=== PATIENT | female | born 1975 | race Caucasian/White ===

== ENCOUNTER 2017-06-13 10:26 | Inpatient (IN) | payer BC ==
[~2017-06-13] VITALS: Ht 162.6 cm; Wt 113.4 kg
[~2017-06-13 10:26] MED LIST: HYDR-3454 PO; HYDR-757 PO
--- OUTSIDE RECORDS SUMMARY | 2017-06-13 10:56 | XMS REPORT | Continuity of Care Document ---
Author Author [facility] Organization [facility] Address Unknown Phone Unavailable Allergies Active Description Code Type Severity Reaction Onset Reported/Identified Relationship to Patient Clinical Status Yes No Known Drug Allergies [id number] Drug Allergy Unknown N/A 09/23/2015 Medications There is no data. Problems Date Dx Coded Attending Type Code Diagnosis Diagnosed By 09/18/2015 YU KELLY APRN Ot K80.50 CALCULUS OF BILE DUCT W/O CHOLANGITIS OR 09/18/2015 YU KELLY APRN Ot R59.0 LOCALIZED ENLARGED LYMPH NODES 09/18/2015 YU KELLY ESOL INSTRUCTOR Ot R93.5 ABN FINDINGS ON DX IMAGING OF ABD REGION 09/19/2015 YU KELLY APRN Ot K80.50 CALCULUS OF BILE DUCT W/O CHOLANGITIS OR 09/19/2015 YU KELLY APRN Ot R59.0 LOCALIZED ENLARGED LYMPH NODES 09/19/2015 YU KELLY ESOL INSTRUCTOR Ot R93.5 ABN FINDINGS ON DX IMAGING OF ABD REGION 09/22/2015 CANDACE CORONA DO Ot K80.20 CALCULUS OF GALLBLADDER W/O CHOLECYSTITI 09/23/2015 DEENA JACKSON, ROBYN Oneal Ot K80.20 CALCULUS OF GALLBLADDER W/O CHOLECYSTITI 09/23/2015 DEENA JACKSON, ROBYN Oneal Ot Z01.818 ENCOUNTER FOR OTHER PREPROCEDURAL EXAMIN 09/24/2015 ROBYN SHAFFER MD Ot K80.20 CALCULUS OF GALLBLADDER W/O CHOLECYSTITI 09/25/2015 ROBYN SHAFFER MD Ot K80.20 CALCULUS OF GALLBLADDER W/O CHOLECYSTITI 09/25/2015 ROBYN SHAFFER MD Ot Z01.818 ENCOUNTER FOR OTHER PREPROCEDURAL EXAMIN 09/30/2015 ROBYN SHAFFER MD Ot K80.20 CALCULUS OF GALLBLADDER W/O CHOLECYSTITI 10/01/2015 ROBYN SHAFFER MD Ot K80.20 CALCULUS OF GALLBLADDER W/O CHOLECYSTITI 02/14/2016 CARINE CASTILLOP Ot G47.10 HYPERSOMNIA, UNSPECIFIED 02/14/2016 CARINE CASTILLO Ot R06.83 SNORING 02/16/2016 CARINE CASTILLO Ot G47.10 HYPERSOMNIA, UNSPECIFIED 02/16/2016 CARINE CASTILLO Ot R06.83 SNORING 02/16/2016 CANDACE CORONA DO Ot K80.20 CALCULUS OF GALLBLADDER W/O CHOLECYSTITI 07/13/2016 CANDACE CORONA DO Ot K80.20 CALCULUS OF GALLBLADDER W/O CHOLECYSTITI 07/13/2016 CANDACE CORONA DO Ot K80.20 CALCULUS OF GALLBLADDER W/O CHOLECYSTITI Procedures There is no data. Results There is no data. Encounters ACCT No. Visit Date/Time Discharge Status Pt. Type Provider Facility Loc./Unit Complaint [id number] 02/13/2016 21:00:00 02/14/2016 06:35:00 DIS Outpatient CARINE CASTILLO [facility] SLEEP SNORING, EXCESSIVE DAYTIME SLEEPINESS [id number] 09/24/2015 11:15:00 09/24/2015 19:40:00 DIS Outpatient ROBYN SHAFFER MD [facility] SDC GALLSTONES [id number] 09/23/2015 10:32:00 09/23/2015 12:50:00 DIS Outpatient ROBYN SHAFFER MD [facility] PREOP GALLSTONES [id number] 09/19/2015 08:47:00 09/19/2015 23:59:59 CLS Outpatient CANDACE CORONA DO [facility] RAD ABD PAIN [id number] 09/18/2015 18:33:00 09/18/2015 21:34:00 DIS Emergency YU KELLY APRN [facility] ER DIFFICULTY BREATHING
[2017-06-13] MEDS ORDERED: RT-ALBUTEROL SULF 2.5 MG/3 ML PRE-MIX VIAL INH NR (11:15)
[2017-06-13] MEDS ORDERED: ACETAMINOPHEN 500 MG TAB (TYLENOL) PO PRN (11:15)
[2017-06-13] MEDS ORDERED: fentaNYL INJECTION 100 MCG/2 ML AMP IVP PRN (11:15)
[2017-06-13] MEDS ORDERED: LORazepam INJ 2 MG/ML (ATIVAN) VIAL IVP PRN (11:15)
[2017-06-13] MEDS ORDERED: ONDANSETRON 4 MG/2 ML (SDV) Z0FRAN IVP PRN (11:15)
[2017-06-13 11:22] LABS: ABG BASE EXCESS 3.2 MMOL/L (-2.5-2.5); ABG OXYGEN SATURATION 96 % (94-100); ABG PCO2 47 MMHG (35-45); ABG PH 7.39 (7.37-7.43); ABG PO2 75 MMHG (79-93); ABG TCO2 29.2 MMOL/L (21.0-31.0)
[2017-06-13] MEDS ORDERED: CLAR-19 PO (11:28)
[2017-06-13] MEDS ORDERED: FLUT1DIS28 INH (11:28)
[2017-06-13] MEDS ORDERED: PRD20T PO (11:28)
[2017-06-13 11:31] LABS: BASOPHILS # (AUTO) 0.1 10^3/uL (0.0-0.1); BASOPHILS % (AUTO) 1 % (0-10); EOSINOPHILS # (AUTO) 0.2 10^3/uL (0.0-0.3); EOSINOPHILS % (AUTO) 2 % (0-10); HEMATOCRIT 45 % (35-52); HEMOGLOBIN 14.9 G/DL (11.5-16.0); LYMPHOCYTES # (AUTO) 3.6 X 10^3 (1.0-4.0); LYMPHOCYTES % (AUTO) 33 % (12-44); MEAN CORPUSCULAR HEMOGLOBIN 31 PG (25-34); MEAN CORPUSCULAR HGB CONC 34 G/DL (32-36); MEAN CORPUSCULAR VOLUME 92 FL (80-99); MEAN PLATELET VOLUME 9.7 FL (7.4-10.4); MONOCYTES # (AUTO) 1.4 X 10^3 (0.0-1.0); MONOCYTES % (AUTO) 13 % (0-12); NEUTROPHILS # (AUTO) 5.6 X 10^3 (1.8-7.8); NEUTROPHILS % (AUTO) 52 % (42-75); PLATELET COUNT 243 10^3/uL (130-400); RED BLOOD COUNT 4.83 10^6/uL (4.35-5.85); RED CELL DISTRIBUTION WIDTH 13.3 % (10.0-14.5); WHITE BLOOD COUNT 10.8 10^3/uL (4.3-11.0)
[2017-06-13] MEDS ORDERED: AMOX1TAB11 PO (11:32)
[2017-06-13] MEDS ORDERED: FLUC200T5 PO (11:32)
[2017-06-13] MEDS ORDERED: HYDR473S34 PO (11:32)
[2017-06-13] MEDS ORDERED: CODE118S2 PO (11:32)
[2017-06-13] MEDS ORDERED: BENZ-36 PO (11:32)
[2017-06-13 11:35] LABS: ALLENS TEST YES-POS; INSPIRED O2 ROOM AIR; PATIENT TEMP 98.5; VENTILATOR NO
[2017-06-13 11:53] LABS: ALANINE AMINOTRANSFERASE 26 U/L (0-55); ALKALINE PHOSPHATASE 90 U/L (40-136); BILIRUBIN,TOTAL 0.7 MG/DL (0.1-1.0); BUN/CREATININE RATIO 19; CARBON DIOXIDE 23 MMOL/L (21-32); CHLORIDE 103 MMOL/L (98-107); CREATININE SERUM 0.81 MG/DL (0.60-1.30); GFR ESTIMATED > 60; GLUCOSE 95 MG/DL (70-105); POTASSIUM 4.3 MMOL/L (3.6-5.0); SODIUM 137 MMOL/L (135-145); TOTAL PROTEIN 7.6 GM/DL (6.4-8.2)
[2017-06-13] MEDS: cefTRIAXone INJECTION 1,000 MG in NS (IVPB) 50 ML IV SCH (12:14)
[2017-06-13] MEDS: AZITHROMYCIN INJECTION 500 MG in NS (IVPB) 250 ML IV SCH (12:14)
[2017-06-13] MEDS: methylPREDNISolone 40 MG/ML (Solu-MEDROL) VIAL IV SCH ×3 (12:16→23:29)
--- NOTE | 2017-06-13 13:08 | Diagnostic Imaging Report ---
INDICATION: Shortness of air. Wheezing. Cough. COMPARISON: 09/18/2015. FINDINGS: Frontal and lateral radiographic views of the chest were obtained and show normal cardiac silhouette and pulmonary vasculature. There is subtle ill-defined increased opacification within the right lower lung field, only well visualized on the frontal view. Corresponding infiltrate is not well visualized on the lateral view. There is no large effusion or pneumothorax. Bony structures show no gross acute abnormalities. IMPRESSION: 1. Subtle findings suggestive of infiltrate in the right lower lung field. Short interval followup is recommended. Dictated by: Dictated on workstation # [id number]
[2017-06-13] MEDS: RT-ALBUTEROL SULF 2.5 MG/3 ML PRE-MIX VIAL INH SCH ×3 (14:17→23:23)
[2017-06-13 16:00] VITALS: BP 115/64
[2017-06-13] MEDS ORDERED: RT-ALBUTEROL SULF 2.5 MG/3 ML PRE-MIX VIAL INH PRN (16:00)
[2017-06-13] MEDS: RT-BUDESONIDE NEBS 0.5 MG/2ML (PULMICORT) AMP INH SCH (19:40)
[2017-06-13 20:00] VITALS: BP 142/75
[2017-06-13] MEDS: HYDROCODONE/CHLOR 10MG/5 ML (TUSSIONEX SUSP) 5ML UDC PO SCH (20:22)
[2017-06-13] MEDS: IBUPROFEN TABLET 200 MG TAB PO PRN (21:28)
[2017-06-14 00:32] VITALS: BP 117/56
[2017-06-14] MEDS: RT-ALBUTEROL SULF 2.5 MG/3 ML PRE-MIX VIAL INH SCH ×6 (02:57→22:35)
[2017-06-14 03:56] VITALS: BP 119/69
[2017-06-14] MEDS: IBUPROFEN TABLET 200 MG TAB PO PRN ×3 (04:00→20:22)
[2017-06-14] MEDS: methylPREDNISolone 40 MG/ML (Solu-MEDROL) VIAL IV SCH ×3 (05:41→19:14)
[2017-06-14 06:53] LABS: BASOPHILS % (AUTO) 0 % (0-10); EOSINOPHILS % (AUTO) 0 % (0-10); HEMATOCRIT 43 % (35-52); HEMOGLOBIN 14.5 G/DL (11.5-16.0); LYMPHOCYTES # (AUTO) 0.9 X 10^3 (1.0-4.0); LYMPHOCYTES % (AUTO) 7 % (12-44); MEAN CORPUSCULAR HEMOGLOBIN 31 PG (25-34); MEAN CORPUSCULAR HGB CONC 34 G/DL (32-36); MEAN CORPUSCULAR VOLUME 91 FL (80-99); MEAN PLATELET VOLUME 9.9 FL (7.4-10.4); MONOCYTES # (AUTO) 0.2 X 10^3 (0.0-1.0); MONOCYTES % (AUTO) 1 % (0-12); NEUTROPHILS # (AUTO) 12.8 X 10^3 (1.8-7.8); NEUTROPHILS % (AUTO) 92 % (42-75); PLATELET COUNT 266 10^3/uL (130-400); RED BLOOD COUNT 4.72 10^6/uL (4.35-5.85); WHITE BLOOD COUNT 13.9 10^3/uL (4.3-11.0)
[2017-06-14 07:05] LABS: ALANINE AMINOTRANSFERASE 28 U/L (0-55); ALBUMIN 4.1 GM/DL (3.2-4.5); ALKALINE PHOSPHATASE 90 U/L (40-136); BILIRUBIN,TOTAL 0.4 MG/DL (0.1-1.0); BUN/CREATININE RATIO 16; CALCIUM 9.1 MG/DL (8.5-10.1); CARBON DIOXIDE 21 MMOL/L (21-32); CHLORIDE 102 MMOL/L (98-107); CREATININE SERUM 0.77 MG/DL (0.60-1.30); GFR ESTIMATED > 60; GLUCOSE 186 MG/DL (70-105); POTASSIUM 4.5 MMOL/L (3.6-5.0); SODIUM 136 MMOL/L (135-145); TOTAL PROTEIN 7.7 GM/DL (6.4-8.2)
[2017-06-14 08:00] VITALS: BP 138/67
[2017-06-14] MEDS: RT-BUDESONIDE NEBS 0.5 MG/2ML (PULMICORT) AMP INH SCH ×2 (08:03→19:19)
--- NOTE | 2017-06-14 08:39 | History & Physical-Hospitalist ---
HPI History of Present Illness: HPI/Chief Complaint CC: Respiratory Insufficiency HPI: This is a 41-year-old white female clinic patient of mine with no history of lung disease who presents to my office yesterday with severe wheezing after antibiotic treatment with Amoxil and Biaxin initiated last week from Urgent Care and me who presented to the office with severe wheezing severe cough and worsened status. She was put in as an urgent appointment. Patient was found to be in respiratory insufficiency with bilateral wheezing audible when I walked in the room and in need of hospitalization for rapid respiratory failure if not treated. Patient was found to have a right lower lobe pneumonia which was concerning considering adequate antibiotic coverage the week prior. At this current time patient feels much better less wheezing but still currently under the weather. Source: patient Exam Limitations: no limitations Date Seen 06/14/17 Time Seen by Provider: 08:30 Attending Physician Buffy Andrea DO PCP Buffy Andrea DO Referring Physician Date of Admission Jun 13, 2017 at 10:51 Home Medications & Allergies Home Medications Reviewed patient Home Medication Reconciliation Form Allergies Allergies Coded Allergies No Known Drug Allergies (Unverified06/13/17) Past Ydqrfbd-Ozyvgq-Htbbxz Hx Patient Social History Marrital Status: single Employed/Student: employed ([employer]se[employer]) Alcohol Use: Denies Use Recreational Drug Use: No Smoking Status: Never a Smoker Physical Abuse Screen: No Sexual Abuse: No Recent Foreign Travel: No Contact w/other who traveled: No Recent Hopitalizations: No Recent Infectious Disease Expo: No Immunizations Up To Date Date of Influenza Vaccine: Jan 16, 2017 Seasonal Allergies Seasonal Allergies: No Surgeries Yes (R KNEE SCOPE, R KNEE SURGERY) Orthopedic Respiratory No Cardiovascular No Neurological No Reproductive System Hx Reproductive Disorders: No HIV/AIDS: No Female Reproductive Disorders: Denies Genitourinary Yes Kidney Stones Gastrointestinal Yes (OCCASIONAL REFLUX) Gastroesophageal Reflux, Gall Bladder Disease Musculoskeletal No Endocrine History of Endocrine Disorders: No HEENT History of HEENT Disorders: No Loss of Vision: Denies Hearing Impairment: Denies Cancer No Psychosocial History of Psychiatric Problem: No Integumentary History of Skin or Integumenta: No Blood Transfusions History of Blood Disorders: No Adverse Reaction to a Blood Tr: No (N/A) Review of Systems Constitutional: see HPI, chills, dizziness, fever, malaise, weakness EENTM: no symptoms reported Respiratory: cough, dyspnea on exertion, short of breath, wheezing Cardiovascular: no symptoms reported Gastrointestinal: no symptoms reported Genitourinary: no symptoms reported Musculoskeletal: no symptoms reported Skin: no symptoms reported Psychiatric/Neurological: No Symptoms Reported All Other Systems Reviewed Negative Unless Noted: Yes Physical Exam Physical Exam Vital Signs Vital Signs - First Documented 06/13/17 06/13/17 06/13/17 13:49 14:24 16:00 Temp 99.1 Pulse 75 Resp 18 B/P (MAP) 115/64 (81) Pulse Ox 92 O2 Delivery Room Air Capillary Refill : Less Than 3 Seconds General Appearance: No Apparent Distress, WD/WN Eyes: Bilateral Eye Normal Inspection, Bilateral Eye PERRL HEENT: PERRL/EOMI, Normal ENT Inspection, Pharynx Normal Neck: Full Range of Motion, Normal Inspection, Non Tender, Supple, Carotid Bruit Respiratory: Chest Non Tender, No Accessory Muscle Use, No Respiratory Distress , Crackles, Decreased Breath Sounds, Wheezing Cardiovascular: Regular Rate, Rhythm, No Edema, No Gallop, No JVD, No Murmur, Normal Peripheral Pulses Gastrointestinal: Normal Bowel Sounds, No Organomegaly, No Pulsatile Mass, Non Tender, Soft Back: Normal Inspection, No CVA Tenderness, No Vertebral Tenderness Extremity: Normal Capillary Refill, Normal Inspection, Normal Range of Motion, Non Tender, No Calf Tenderness, No Pedal Edema Neurologic/Psychiatric: Alert, Oriented x3, No Motor/Sensory Deficits, Normal Mood/Affect Skin: Normal Color, Warm/Dry Lymphatic: No Adenopathy Results Results/Procedures Lab Laboratory Tests 06/13/17 11:20 06/14/17 06:20 Assessment/Plan Admission Diagnosis Assessment: Right lower lobe pneumonia failed amoxicillin and Biaxin New onset wheezing and patient without lung disease and nonsmoker lifetime Leukocytosis due to steroid effect Acute hypoxemia requiring aggressive nebulizer treatments oxygen supplementation and IV steroids Admission Status: Inpatient Order (span 2 midnights) Reason for Inpatient Admission: Severe wheezing and severe hypoxemia requiring IV steroids and nebulizer treatments and oxygen supplementation Assessment and Plan Plan: IV steroids Nebulizers Oxygen Antitussives Monitor closely Clinical Quality Measures DVT/VTE Risk/Contraindication: Risk Factor Score Per Nursin RFS Level Per Nursing on Admit: 3=High BUFFY ANDREA DO Jun 14, 2017 08:39
[2017-06-14] MEDS: HYDROCODONE/CHLOR 10MG/5 ML (TUSSIONEX SUSP) 5ML UDC PO SCH ×2 (08:46→20:22)
[2017-06-14] MEDS: cefTRIAXone INJECTION 1,000 MG in NS (IVPB) 50 ML IV SCH (08:46)
[2017-06-14] MEDS: AZITHROMYCIN INJECTION 500 MG in NS (IVPB) 250 ML IV SCH (08:47)
[2017-06-14 15:37] VITALS: BP 133/62
[2017-06-14] MEDS: HYDROcodone/APAP 5 MG/325 MG (LORTAB) TAB PO PRN (16:30)
[2017-06-14] MEDS: BENZONATATE 100 MG (TESSALON) CAPSULE PO PRN (16:30)
[2017-06-15] MEDS: BENZONATATE 100 MG (TESSALON) CAPSULE PO PRN ×4 (00:28→22:02)
[2017-06-15] MEDS: methylPREDNISolone 40 MG/ML (Solu-MEDROL) VIAL IV SCH ×5 (00:28→23:00)
[2017-06-15 00:29] VITALS: BP 117/62
[2017-06-15] MEDS: HYDROcodone/APAP 5 MG/325 MG (LORTAB) TAB PO PRN ×4 (00:29→22:02)
[2017-06-15] MEDS: RT-ALBUTEROL SULF 2.5 MG/3 ML PRE-MIX VIAL INH SCH ×6 (02:34→22:07)
[2017-06-15 06:22] LABS: BASOPHILS % (AUTO) 0 % (0-10); EOSINOPHILS % (AUTO) 0 % (0-10); HEMATOCRIT 41 % (35-52); HEMOGLOBIN 13.8 G/DL (11.5-16.0); LYMPHOCYTES % (AUTO) 4 % (12-44); MEAN CORPUSCULAR HEMOGLOBIN 31 PG (25-34); MEAN CORPUSCULAR HGB CONC 34 G/DL (32-36); MEAN CORPUSCULAR VOLUME 92 FL (80-99); MEAN PLATELET VOLUME 9.9 FL (7.4-10.4); MONOCYTES # (AUTO) 0.7 X 10^3 (0.0-1.0); MONOCYTES % (AUTO) 3 % (0-12); NEUTROPHILS # (AUTO) 23.4 X 10^3 (1.8-7.8); NEUTROPHILS % (AUTO) 93 % (42-75); PLATELET COUNT 272 10^3/uL (130-400); RED BLOOD COUNT 4.43 10^6/uL (4.35-5.85); RED CELL DISTRIBUTION WIDTH 13.5 % (10.0-14.5); WHITE BLOOD COUNT 25.2 10^3/uL (4.3-11.0)
[2017-06-15 06:44] LABS: ALANINE AMINOTRANSFERASE 25 U/L (0-55); ALBUMIN 3.6 GM/DL (3.2-4.5); ALKALINE PHOSPHATASE 87 U/L (40-136); BILIRUBIN,TOTAL 0.3 MG/DL (0.1-1.0); BUN/CREATININE RATIO 22; CALCIUM 8.7 MG/DL (8.5-10.1); CARBON DIOXIDE 20 MMOL/L (21-32); CHLORIDE 107 MMOL/L (98-107); CREATININE SERUM 0.76 MG/DL (0.60-1.30); GFR ESTIMATED > 60; GLUCOSE 217 MG/DL (70-105); POTASSIUM 4.6 MMOL/L (3.6-5.0); SODIUM 138 MMOL/L (135-145); TOTAL PROTEIN 6.8 GM/DL (6.4-8.2)
[2017-06-15 07:20] LABS: BAND NEUTROPHILS 4 %; BASOPHILS % (MANUAL) 0 %; EOSINOPHILS % (MANUAL) 0 %; LYMPHOCYTES % (MANUAL) 3 %; MONOCYTES % (MANUAL) 2 %; NEUTROPHILS % (MANUAL) 91 %; RBC MORPH NORMAL
[2017-06-15] MEDS: RT-BUDESONIDE NEBS 0.5 MG/2ML (PULMICORT) AMP INH SCH ×2 (07:47→19:26)
[2017-06-15 08:00] VITALS: BP 130/59
[2017-06-15] MEDS: HYDROCODONE/CHLOR 10MG/5 ML (TUSSIONEX SUSP) 5ML UDC PO SCH ×2 (08:30→20:18)
[2017-06-15] MEDS: AZITHROMYCIN 250 MG TAB (ZITHROMAX) PO SCH (08:31)
[2017-06-15] MEDS: cefTRIAXone INJECTION 1,000 MG in NS (IVPB) 50 ML IV SCH (08:31)
--- NOTE | 2017-06-15 10:43 | Diagnostic Imaging Report ---
INDICATION: Pneumonia and wheezing with cough. TIME OF EXAM: 10:45 AM Correlation is made with prior chest radiograph from 06/13/2017. FINDINGS: There has been improved appearance of the chest since prior study. There is improved aeration in near complete clearing of previously noted right basilar pneumonia. No new parenchymal infiltrate is identified. The pulmonary vascularity is normal. No effusion is identified. There is no pneumothorax identified. IMPRESSION: Near complete clearing of right basilar pneumonia when compared with examination 2 days earlier. Dictated by: Dictated on workstation # [id number]
--- NOTE | 2017-06-15 11:55 | Pulmonary Consultation ---
History of Present Illness History of Present Illness Date of Consultation 06/15/17 11:50 Time Seen by Provider: 11:50 Date of Admission History of Present Illness [address] Andrea's office secondary to severe wheezing and failing out patient treatment. Upon hospital admission she was found to have RLL pneumonia. SHe was treated as an out patietn with amoxil and Biaxin. Allergies and Home Medications Allergies Coded Allergies: No Known Drug Allergies (Unverified , 06/13/17) Home Medications Clarithromycin 500 Mg Tablet, 500 MG PO BID, (Reported) 7 DAY SUPPLY PICKED UP 06-09-17 Fluconazole 200 Mg Tablet, 200 MG PO Q72H PRN for YEAST INFECTION, (Reported) FILLED #3 TABS 06-06-17 HAS NOT HAD TO TAKE YET Fluticasone/Salmeterol 1 Each Blst.w.dev, 1 PUFF INH BID, (Reported) Hydrocodone/Chlorphen P-Stirex 473 Ml Maritza.er.12h, 5 ML PO Q12H PRN for COUGH, ( Reported) PICKED UP #180ML 06-09-17 Past Quopkdw-Tdcits-Kfnusb Hx Patient Social History Alcohol Use: Denies Use Recreational Drug Use: No Smoking Status: Never a Smoker Recent Foreign Travel: No Contact w/Someone Who Travel: No Recent Infectious Disease Expo: No Recent Hopitalizations: No Immunizations Up To Date Date of Influenza Vaccine: Jan 16, 2017 Seasonal Allergies Seasonal Allergies: No Surgeries History of Surgeries: Yes (R KNEE SCOPE, R KNEE SURGERY) Surgeries: Orthopedic Respiratory History of Respiratory Disorde: No Cardiovascular History of Cardiac Disorders: No Neurological History of Neurological Disord: No Reproductive System Hx Reproductive Disorders: No HIV/AIDS: No Female Reproductive Disorders: Denies Genitourinary History of Genitourinary Disor: Yes Genitourinary Disorders: Kidney Stones Gastrointestinal History of Gastrointestinal Di: Yes (OCCASIONAL REFLUX) Gastrointestinal Disorders: Gastroesophageal Reflux, Gall Bladder Disease Musculoskeletal History of Musculoskeletal Dis: No Endocrine History of Endocrine Disorders: No HEENT History of HEENT Disorders: No Loss of Vision: Denies Hearing Impairment: Denies Cancer History of Cancer: No Psychosocial History of Psychiatric Problem: No Integumentary History of Skin or Integumenta: No Blood Transfusions History of Blood Disorders: No Adverse Reaction to a Blood Tr: No (N/A) Exam Exam Vital Signs Date Time Temp Pulse Resp B/P (MAP) Pulse Ox O2 Delivery O2 Flow Rate FiO2 06/15/17 11:07 96 Room Air 06/15/17 08:00 98.2 108 20 130/59 (82) 94 Room Air 06/15/17 07:49 94 Room Air 06/15/17 02:34 95 Room Air 06/15/17 00:29 97.8 90 16 117/62 (80) 92 Room Air 06/14/17 22:35 96 Room Air 06/14/17 20:00 Room Air 06/14/17 19:19 96 Room Air 06/14/17 19:19 96 Room Air 06/14/17 15:37 99.0 92 16 133/62 (85) 94 Room Air 06/14/17 14:57 96 Room Air I & O 06/15/17 07:00 Intake Total 2232 ml Balance 2232 ml General Appearance: No Apparent Distress, WD/WN HEENT: PERRL/EOMI, Normal ENT Inspection, Pharynx Normal Neck: Full Range of Motion, Normal Inspection, Non Tender, Supple, Carotid Bruit Respiratory: Chest Non Tender, No Accessory Muscle Use, No Respiratory Distress , Crackles, Decreased Breath Sounds, Wheezing Cardiovascular: Regular Rate, Rhythm, No Edema, No Gallop, No JVD, No Murmur, Normal Peripheral Pulses Extremity: Normal Capillary Refill, Normal Inspection, Normal Range of Motion, Non Tender, No Calf Tenderness, No Pedal Edema Neurologic/Psychiatric: Alert, Oriented x3, No Motor/Sensory Deficits, Normal Mood/Affect Skin: Normal Color, Warm/Dry Lymphatic: No Adenopathy Results Lab Laboratory Tests 06/14/17 06:20 06/15/17 05:50 Assessment/Plan Assessment/Plan RLL pneumonia -Continue current Abx Acute bronchitis -SVNS -SOlumedrol 254 CRISTY FOX DO Jun 15, 2017 11:55
--- NOTE | 2017-06-15 11:56 | Progress Note-Hospitalist ---
Progress Note HPI/CC on Admission CC: Respiratory Insufficiency HPI: This is a 41-year-old white female clinic patient of mine with no history of lung disease who presents to my office yesterday with severe wheezing after antibiotic treatment with Amoxil and Biaxin initiated last week from Urgent Care and me who presented to the office with severe wheezing severe cough and worsened status. She was put in as an urgent appointment. Patient was found to be in respiratory insufficiency with bilateral wheezing audible when I walked in the room and in need of hospitalization for rapid respiratory failure if not treated. Patient was found to have a right lower lobe pneumonia which was concerning considering adequate antibiotic coverage the week prior. At this current time patient feels much better less wheezing but still currently under the weather. Progress Notes/Assess & Plan Date Seen 06/15/17 Time Seen by Provider: 10:00 Admission Dx/Process Pharmacy Review: Meds were discussed with pharmacist assembler dc field yoke: Pt's cough is terrible Pt not running a fever Solu Medrol on 80 Pt stated she rested a bit better last night. Lortab with Tessalon administered yesterday Pt was talking about how she had just started working out recently SCDs ordered Pt only goes back and forth to the bathroom, but has not ambulated more, since these movements make her wheeze more. Pt Interview: Medications were discussed and pt was informed that I will have some imaging done since she is not progressing as well as we had hoped. Pt was informed that I will confer with Dr. Tinajero as well Pt states she just wants to get better and is not worried about DC yet Pt does look a bit better and she states she has been feeling a bit better Pt confirms sleep study last year. Pt states she has had her CPAP for a year and usually uses it regularly, but forgot to bring it. Pt states she will have her daughter bring it. Physical exam stable. Lungs sound a little better, but still wheezing Pt confirms BM AFVSS, Pleasant, slightly improved RRR, wheezing noted all alfonso minimal improvement No edema Laboratory Tests 06/15/17 05:50 Assessment: Right lower lobe pneumonia failed amoxicillin and Biaxin New onset wheezing and patient without lung disease and nonsmoker lifetime with continued wheezing concerning for additional complications obtaining CT chest Leukocytosis due to steroid effect Acute hypoxemia requiring aggressive nebulizer treatments oxygen supplementation and IV steroids STAN compliant with CPAP x 1 year Plan: Conferred with Dr Tinajero CT chest CXR 40 of lovenox due to minimal activity Retrieve CPAP from home Scribed by Jennifer Ortiz under direct supervision of Dr. Buffy Corona. Diagonsis/Assessment & Plan Plan: IV steroids Nebulizers Oxygen Antitussives Monitor closely BUFFY CORONA DO Jun 15, 2017 11:56
[2017-06-15] MEDS: ENOXAPARIN 40 MG/0.4 ML (LOVENOX) SYR SC SCH (14:12)
[2017-06-15] MEDS ORDERED: NS 100 ML (IVPB) BAG IV ONE (14:30)
[2017-06-15] MEDS ORDERED: IOHEXOL 350 MG/ML 150 ML (OMNIPAQUE 350) VIAL IV ONE (14:30)
[2017-06-15 16:00] VITALS: BP 129/65
[2017-06-15 16:04] LABS: ABG BASE EXCESS -0.5 MMOL/L (-2.5-2.5); ABG OXYGEN SATURATION 96 % (94-100); ABG PCO2 37 MMHG (35-45); ABG PH 7.41 (7.37-7.43); ABG PO2 68 MMHG (79-93); ABG TCO2 24.7 MMOL/L (21.0-31.0)
[2017-06-15 16:05] LABS: ALLENS TEST POSITIVE; VENTILATOR NO
--- NOTE | 2017-06-15 18:20 | Diagnostic Imaging Report ---
INDICATION: Cough, wheezing, shortness of air for three weeks. COMPARISON STUDY: Plain films of the chest from earlier today. FINDINGS: No pulmonary emboli, aortic dissection or aneurysm is present. The heart size is normal. No pleural or pericardial effusions are present. There is no abnormal adenopathy. Small wedge-shaped area of the liver demonstrates some vascular shunting. Some mild infiltrates with a tree-in-bud appearance are present in the mid aspect of the right lower lobe. These are nonspecific. These could be inflammatory, infectious or less likely tumor. IMPRESSION: There are tree-in-bud infiltrates in the right midlung. Recommend followup exam to document clearance. Dictated by: Dictated on workstation # [id number]
[2017-06-15] MEDS: IBUPROFEN TABLET 200 MG TAB PO PRN (18:23)
[2017-06-16 00:35] VITALS: BP 123/71
[2017-06-16] MEDS: RT-ALBUTEROL SULF 2.5 MG/3 ML PRE-MIX VIAL INH SCH ×6 (01:28→21:20)
[2017-06-16 05:59] LABS: BASOPHILS % (AUTO) 0 % (0-10); EOSINOPHILS % (AUTO) 0 % (0-10); HEMATOCRIT 40 % (35-52); HEMOGLOBIN 13.5 G/DL (11.5-16.0); LYMPHOCYTES # (AUTO) 1.2 X 10^3 (1.0-4.0); LYMPHOCYTES % (AUTO) 5 % (12-44); MEAN CORPUSCULAR HEMOGLOBIN 31 PG (25-34); MEAN CORPUSCULAR HGB CONC 34 G/DL (32-36); MEAN CORPUSCULAR VOLUME 93 FL (80-99); MEAN PLATELET VOLUME 9.7 FL (7.4-10.4); MONOCYTES # (AUTO) 0.7 X 10^3 (0.0-1.0); MONOCYTES % (AUTO) 3 % (0-12); NEUTROPHILS # (AUTO) 19.6 X 10^3 (1.8-7.8); NEUTROPHILS % (AUTO) 92 % (42-75); PLATELET COUNT 262 10^3/uL (130-400); RED BLOOD COUNT 4.33 10^6/uL (4.35-5.85); RED CELL DISTRIBUTION WIDTH 13.5 % (10.0-14.5); WHITE BLOOD COUNT 21.5 10^3/uL (4.3-11.0)
[2017-06-16] MEDS: methylPREDNISolone 40 MG/ML (Solu-MEDROL) VIAL IV SCH ×3 (06:07→18:21)
[2017-06-16 06:34] LABS: ALANINE AMINOTRANSFERASE 46 U/L (0-55); ALBUMIN 3.5 GM/DL (3.2-4.5); ALKALINE PHOSPHATASE 73 U/L (40-136); BILIRUBIN,TOTAL 0.4 MG/DL (0.1-1.0); BUN/CREATININE RATIO 23; CALCIUM 8.5 MG/DL (8.5-10.1); CARBON DIOXIDE 19 MMOL/L (21-32); CHLORIDE 105 MMOL/L (98-107); CREATININE SERUM 0.73 MG/DL (0.60-1.30); GFR ESTIMATED > 60; GLUCOSE 183 MG/DL (70-105); MAGNESIUM 2.5 MG/DL (1.8-2.4); POTASSIUM 4.9 MMOL/L (3.6-5.0); SODIUM 137 MMOL/L (135-145); TOTAL PROTEIN 6.4 GM/DL (6.4-8.2)
--- NOTE | 2017-06-16 07:07 | Pulmonary Progress Note ---
Exam Exam Vital Signs Date Time Temp Pulse Resp B/P (MAP) Pulse Ox O2 Delivery O2 Flow Rate FiO2 06/16/17 00:35 97.1 89 18 123/71 (88) 94 Room Air 06/15/17 22:08 97 Room Air 06/15/17 20:00 Room Air 06/15/17 19:36 97 Room Air 06/15/17 19:26 95 Room Air 06/15/17 16:28 97 Room Air 06/15/17 16:00 97.6 73 20 129/65 (86) 94 Room Air 06/15/17 11:07 96 Room Air 06/15/17 08:00 98.2 108 20 130/59 (82) 94 Room Air 06/15/17 08:00 96 Room Air 06/15/17 07:49 94 Room Air I & O 06/16/17 07:00 Intake Total 2420 ml Balance 2420 ml General Appearance: No Apparent Distress, WD/WN HEENT: PERRL/EOMI, Normal ENT Inspection, Pharynx Normal Neck: Full Range of Motion, Normal Inspection, Non Tender, Supple, Carotid Bruit Respiratory: Chest Non Tender, No Accessory Muscle Use, No Respiratory Distress , Crackles, Decreased Breath Sounds, Wheezing Cardiovascular: Regular Rate, Rhythm, No Edema, No Gallop, No JVD, No Murmur, Normal Peripheral Pulses Extremity: Normal Capillary Refill, Normal Inspection, Normal Range of Motion, Non Tender, No Calf Tenderness, No Pedal Edema Neurologic/Psychiatric: Alert, Oriented x3, No Motor/Sensory Deficits, Normal Mood/Affect Skin: Normal Color, Warm/Dry Lymphatic: No Adenopathy Results Lab Laboratory Tests 06/15/17 05:50 06/16/17 05:50 Assessment/Plan Assessment/Plan RLL pneumonia -Continue current Abx -CT of chest reviewed will need repeat study in 8 wks. Acute bronchitis -SVNS -SOlumedrol - decrease to 40 Q 6 232 CRISTY FOX DO Jun 16, 2017 07:07
[2017-06-16] MEDS: RT-BUDESONIDE NEBS 0.5 MG/2ML (PULMICORT) AMP INH SCH ×2 (07:17→18:55)
[2017-06-16 08:00] VITALS: BP 135/63
[2017-06-16] MEDS: HYDROcodone/APAP 5 MG/325 MG (LORTAB) TAB PO PRN ×2 (08:19→18:21)
[2017-06-16] MEDS: HYDROCODONE/CHLOR 10MG/5 ML (TUSSIONEX SUSP) 5ML UDC PO SCH ×2 (08:19→21:29)
[2017-06-16] MEDS: BENZONATATE 100 MG (TESSALON) CAPSULE PO PRN ×2 (08:19→18:21)
[2017-06-16] MEDS: AZITHROMYCIN 250 MG TAB (ZITHROMAX) PO SCH (08:19)
[2017-06-16] MEDS: cefTRIAXone 1 GM/NS 100 ML IVPB IV SCH ×2 (08:32)
[2017-06-16] MEDS: ENOXAPARIN 40 MG/0.4 ML (LOVENOX) SYR SC SCH (10:22)
--- NOTE | 2017-06-16 10:35 | Progress Note-Hospitalist ---
Progress Note HPI/CC on Admission CC: Respiratory Insufficiency HPI: This is a 41-year-old white female clinic patient of mine with no history of lung disease who presents to my office yesterday with severe wheezing after antibiotic treatment with Amoxil and Biaxin initiated last week from Urgent Care and me who presented to the office with severe wheezing severe cough and worsened status. She was put in as an urgent appointment. Patient was found to be in respiratory insufficiency with bilateral wheezing audible when I walked in the room and in need of hospitalization for rapid respiratory failure if not treated. Patient was found to have a right lower lobe pneumonia which was concerning considering adequate antibiotic coverage the week prior. At this current time patient feels much better less wheezing but still currently under the weather. Progress Notes/Assess & Plan Date Seen 06/16/17 Time Seen by Provider: 10:00 Admission Dx/Process Pharmacy Review: Meds were discussed with pharmacist research project manager: Pt's cough is terrible Pt not running a fever Solu Medrol on 80 Pt stated she rested a bit better last night. Lortab with Tessalon administered yesterday Pt was talking about how she had just started working out recently SCDs ordered Pt only goes back and forth to the bathroom, but has not ambulated more, since these movements make her wheeze more. Pt Interview: Medications were discussed and pt was informed that I will have some imaging done since she is not progressing as well as we had hoped. Pt was informed that I will confer with Dr. Tinajero as well Pt states she just wants to get better and is not worried about DC yet Pt does look a bit better and she states she has been feeling a bit better Pt confirms sleep study last year. Pt states she has had her CPAP for a year and usually uses it regularly, but forgot to bring it. Pt states she will have her daughter bring it. Physical exam stable. Lungs sound a little better, but still wheezing Pt confirms BM AFVSS, Pleasant, slightly improved RRR, wheezing noted all alfonso minimal improvement No edema Laboratory Tests 06/15/17 05:50 Assessment: Right lower lobe pneumonia failed amoxicillin and Biaxin New onset wheezing and patient without lung disease and nonsmoker lifetime with continued wheezing concerning for additional complications obtaining CT chest Leukocytosis due to steroid effect Acute hypoxemia requiring aggressive nebulizer treatments oxygen supplementation and IV steroids STAN compliant with CPAP x 1 year Plan: Conferred with Dr Tinajero CT chest CXR 40 of lovenox due to minimal activity Retrieve CPAP from home Scribed by Jennifer Ortiz under direct supervision of Dr. Buffy Corona. Diagonsis/Assessment & Plan Chart Review: WBC down to 21 Repeat ABG 7.41/37/68 CMP normal except sugar 183 Pt Interview: Pt states everything is good and she slept better last night. Pt confirmed using CPAP last night. Pt states she has stopped wheezing and coughing as much since using CPAP Pt confirms BMs Pt confirms ambulating Physical exam stable. Wheeze still noted CT and ABG discussed and look okay Pt was informed that I will have her tested for home O2 Pt denies having Neb machine at home Pt was informed that I will need to keep her her at least another day. Pt was encouraged to ambulate Patient improved but still wheezing Wheezing all alfonso with good excursion No edema Assessment: Right lower lobe pneumonia failed amoxicillin and Biaxin New onset wheezing and patient without lung disease and nonsmoker lifetime with continued wheezing concerning for additional complications obtained CT chest and Pulmonary consultation Leukocytosis due to steroid effect Acute hypoxemia requiring aggressive nebulizer treatments oxygen supplementation and IV steroids STAN compliant with CPAP x 1 year Plan: IV steroids Nebulizers Oxygen Antitussives Monitor closely Home O2 eval Neb machine Ambulate Scribed by Jennifer Ortiz under direct supervision of Dr. Buffy Corona. BUFFY CORONA DO Jun 16, 2017 10:35
[2017-06-16 12:00] VITALS: BP 157/70
[2017-06-16 16:11] VITALS: BP 142/72
[2017-06-17 00:20] VITALS: BP 114/63
[2017-06-17] MEDS: methylPREDNISolone 40 MG/ML (Solu-MEDROL) VIAL IV SCH (00:20)
[2017-06-17] MEDS: RT-ALBUTEROL SULF 2.5 MG/3 ML PRE-MIX VIAL INH SCH ×3 (02:01→10:14)
--- NOTE | 2017-06-17 05:25 | Pulmonary Progress Note ---
Subjective Time Seen by Provider: 06:21 Subjective/Events-last exam No complications noted. Exam Exam Vital Signs Date Time Temp Pulse Resp B/P (MAP) Pulse Ox O2 Delivery O2 Flow Rate FiO2 06/17/17 02:01 95 Room Air 06/17/17 00:20 98.1 68 17 114/63 (80) 95 Room Air 06/16/17 21:20 96 Room Air 06/16/17 20:00 Room Air 06/16/17 19:04 Room Air 06/16/17 18:56 95 Room Air 06/16/17 16:11 98.4 78 18 142/72 (95) 95 Room Air 06/16/17 15:13 96 Room Air 06/16/17 12:00 96.6 78 20 157/70 (99) 93 Room Air 06/16/17 09:43 0.00 06/16/17 09:42 97 Room Air 06/16/17 08:15 93 Room Air 0.00 06/16/17 08:00 98.1 100 18 135/63 (87) 97 Room Air 06/16/17 07:18 94 Room Air 06/16/17 07:18 97 Room Air I & O 06/17/17 07:00 Intake Total 1332 ml Balance 1332 ml General Appearance: No Apparent Distress, WD/WN HEENT: PERRL/EOMI, Normal ENT Inspection, Pharynx Normal Neck: Full Range of Motion, Normal Inspection, Non Tender, Supple, Carotid Bruit Respiratory: Chest Non Tender, No Accessory Muscle Use, No Respiratory Distress , Crackles, Decreased Breath Sounds, Wheezing Cardiovascular: Regular Rate, Rhythm, No Edema, No Gallop, No JVD, No Murmur, Normal Peripheral Pulses Extremity: Normal Capillary Refill, Normal Inspection, Normal Range of Motion, Non Tender, No Calf Tenderness, No Pedal Edema Neurologic/Psychiatric: Alert, Oriented x3, No Motor/Sensory Deficits, Normal Mood/Affect Skin: Normal Color, Warm/Dry Lymphatic: No Adenopathy Results Lab Laboratory Tests 06/15/17 05:50 06/16/17 05:50 Assessment/Plan Assessment/Plan RLL pneumonia -Continue current Abx -CT of chest reviewed will need repeat study in 8 wks. Acute bronchitis -SVNS -SOlumedrol -change to prednisone taper. Pt is ok for discharge from pulmonary standpoint with prednisone taper and steroid/rescue INH 232 CRISTY FOX DO Jun 17, 2017 05:25
[2017-06-17 06:06] LABS: BASOPHILS % (AUTO) 0 % (0-10); EOSINOPHILS % (AUTO) 0 % (0-10); HEMATOCRIT 40 % (35-52); HEMOGLOBIN 13.4 G/DL (11.5-16.0); LYMPHOCYTES # (AUTO) 0.9 X 10^3 (1.0-4.0); LYMPHOCYTES % (AUTO) 5 % (12-44); MEAN CORPUSCULAR HEMOGLOBIN 31 PG (25-34); MEAN CORPUSCULAR HGB CONC 33 G/DL (32-36); MEAN CORPUSCULAR VOLUME 92 FL (80-99); MEAN PLATELET VOLUME 9.7 FL (7.4-10.4); MONOCYTES # (AUTO) 0.8 X 10^3 (0.0-1.0); MONOCYTES % (AUTO) 5 % (0-12); NEUTROPHILS # (AUTO) 15.2 X 10^3 (1.8-7.8); NEUTROPHILS % (AUTO) 90 % (42-75); PLATELET COUNT 239 10^3/uL (130-400); RED BLOOD COUNT 4.35 10^6/uL (4.35-5.85); RED CELL DISTRIBUTION WIDTH 13.7 % (10.0-14.5); WHITE BLOOD COUNT 16.9 10^3/uL (4.3-11.0)
[2017-06-17 06:28] LABS: ALANINE AMINOTRANSFERASE 67 U/L (0-55); ALBUMIN 3.3 GM/DL (3.2-4.5); ALKALINE PHOSPHATASE 69 U/L (40-136); BILIRUBIN,TOTAL 0.4 MG/DL (0.1-1.0); BUN/CREATININE RATIO 23; CALCIUM 8.1 MG/DL (8.5-10.1); CARBON DIOXIDE 21 MMOL/L (21-32); CHLORIDE 104 MMOL/L (98-107); CREATININE SERUM 0.73 MG/DL (0.60-1.30); GFR ESTIMATED > 60; GLUCOSE 193 MG/DL (70-105); POTASSIUM 4.5 MMOL/L (3.6-5.0); SODIUM 138 MMOL/L (135-145); TOTAL PROTEIN 5.9 GM/DL (6.4-8.2)
[2017-06-17] MEDS: RT-BUDESONIDE NEBS 0.5 MG/2ML (PULMICORT) AMP INH SCH (07:28)
[2017-06-17 08:00] VITALS: BP 151/72
[2017-06-17] MEDS: AZITHROMYCIN 250 MG TAB (ZITHROMAX) PO SCH (08:53)
[2017-06-17] MEDS: BENZONATATE 100 MG (TESSALON) CAPSULE PO PRN (08:53)
[2017-06-17] MEDS: HYDROcodone/APAP 5 MG/325 MG (LORTAB) TAB PO PRN (08:53)
[2017-06-17] MEDS: HYDROCODONE/CHLOR 10MG/5 ML (TUSSIONEX SUSP) 5ML UDC PO SCH (08:54)
[2017-06-17] MEDS: cefTRIAXone 1 GM/NS 100 ML IVPB IV SCH ×2 (08:54)
[2017-06-17] MEDS ORDERED: predniSONE 10 MG TAB PO SCH (09:00)
[2017-06-17] MEDS: ENOXAPARIN 40 MG/0.4 ML (LOVENOX) SYR SC SCH (09:01)
[2017-06-17] MEDS ORDERED: HYDR5SYR PO (10:14)
[2017-06-17] MEDS ORDERED: CEFD300C3 PO (10:14)
[2017-06-17] MEDS ORDERED: ALPR0.5T PO (10:14)
[2017-06-17] MEDS ORDERED: ALBU1.25 IH (10:14)
[2017-06-17] MEDS ORDERED: BENZ-13 PO (10:14)
[2017-06-17] MEDS ORDERED: PRED10TA22 PO (10:14)
[2017-06-17] MEDS ORDERED: FLUC200T5 PO (10:14)
--- NOTE | 2017-06-17 10:16 | Discharge Summary-Hospitalist ---
Diagnosis/Chief Complaint Date of Admission Jun 13, 2017 at 10:51 Date of Discharge Discharge Date: Jun 17, 2017 Admission Diagnosis Assessment: Right lower lobe pneumonia failed amoxicillin and Biaxin New onset wheezing and patient without lung disease and nonsmoker lifetime with continued wheezing concerning for additional complications obtaining CT chest but CT chest was normal just revealing pneumonia present at admission Leukocytosis due to steroid effect Acute hypoxemia requiring aggressive nebulizer treatments oxygen supplementation and IV steroids STAN compliant with CPAP x 1 year Plan: Conferred with Dr Tinajero CT chest CXR 40 of lovenox due to minimal activity Retrieve CPAP from home Scribed by Jennifer Ortiz under direct supervision of Dr. Buffy Corona. Discharge Diagnosis Chart Review: WBC down to 21 Repeat ABG 7.41/37/68 CMP normal except sugar 183 Pt Interview: Pt states everything is good and she slept better last night. Pt confirmed using CPAP last night. Pt states she has stopped wheezing and coughing as much since using CPAP Pt confirms BMs Pt confirms ambulating Physical exam stable. Wheeze still noted CT and ABG discussed and look okay Pt was informed that I will have her tested for home O2 Pt denies having Neb machine at home Pt was informed that I will need to keep her her at least another day. Pt was encouraged to ambulate Patient improved but still wheezing Wheezing all alfonso with good excursion No edema Assessment: Right lower lobe pneumonia failed amoxicillin and Biaxin New onset wheezing and patient without lung disease and nonsmoker lifetime with continued wheezing concerning for additional complications obtained CT chest and Pulmonary consultation Leukocytosis due to steroid effect Acute hypoxemia requiring aggressive nebulizer treatments oxygen supplementation and IV steroids STAN compliant with CPAP x 1 year Plan: IV steroids Nebulizers Oxygen Antitussives Monitor closely Home O2 eval Neb machine Ambulate Scribed by Jennifer Ortiz under direct supervision of Dr. Buffy Corona. Discharge Summary Discharge Physical Examination Allergies: Coded Allergies: No Known Drug Allergies (Unverified , 06/13/17) Vitals & I&Os Vital Signs Date Time Temp Pulse Resp B/P (MAP) Pulse Ox O2 Delivery O2 Flow Rate FiO2 06/17/17 11:30 78 18 151/72 96 Room Air 0.00 06/17/17 08:00 97.7 Hospital Course Patient did very well through the hospital course although lengthy hospitalization required to the severe wheezing and cough. She was hypoxic and hypercapnic at admission due to severe wheezing and pneumonia was diagnosed on chest x-ray. Patient was placed on appropriate antibiotics was given nebulizer treatments antitussives and oxygen supplementation. CT chest was obtained along with pulmonary consultation to assure treatment plan was on track and everything was assessed to be effective. She was able to ambulate well that Lovenox was given for DVT prophylaxis and she was mostly bedridden at the beginning of her admission. Overall labs improved leukocytosis due to steroid effect improved at 16 at time of discharge and patient was deemed stable for discharge home on albuterol nebulizer treatments along with antibiotics and steroids and left close follow up with me in the clinic in 5 days. Labs (last 24 hrs) Microbiology 06/13/17 Blood Culture - Preliminary, Resulted No growth 06/13/17 Influenza Types A,B Antigen ([facility]) - Final, Complete Pending Labs Discussion & Recommendations Discharge Planning: <30 minutes discharge planning Discharge Home Medications: Active Scripts Active Hydrocodone-Homatropine Syrup (Hydrocodone Bit/Homatrop Me-Br) 5 Ml Syrup 5 Ml PO Q12H Xanax (Alprazolam) 0.5 Mg Tablet 0.5 Mg PO Q6H PRN Tessalon Perle (Benzonatate) 100 Mg Capsule 100 Mg PO TID Prednisone 10 Mg Tab.ds.pk 10 Mg PO DAILY Take 6 tabs(60mg)daily,decrease by 1 tab(10MG)daily. Cefdinir 300 Mg Capsule 300 Mg PO BID Albuterol Sulfate 1.25 Mg/3 Ml Vial.neb 1.25 Mg IH QID Fluconazole 200 Mg Tablet 200 Mg PO Q72H PRN FILLED #3 TABS 06-06-17 HAS NOT HAD TO TAKE YET Reported Hydrocodone-Chlorphen ER Susp (Hydrocodone/Chlorphen P-Stirex) 473 Ml Maritza.er.12h 5 Ml PO Q12H PRN PICKED UP #180ML 06-09-17 Advair 100-50 Diskus (Fluticasone/Salmeterol) 1 Each Blst.w.dev 1 Puff INH BID Instructions to patient/family Please see electronic discharge instructions given to patient. Clinical Quality Measures DVT/VTE Risk/Contraindication: Risk Factor Score Per Nursin RFS Level Per Nursing on Admit: 3=High BUFFY CORONA DO Jun 17, 2017 10:16
[2017-06-17 11:30] VITALS: BP 151/72
== END 2017-06-17 11:25 | disposition home or self-care (01) | DRG 195 ==
LOC: 4TH 10:51 → OBSVTOIN 10:51 → UNDOADMOB 10:51 → INTOOBSV 10:51 → EDSTATUS 15:11 → UNDODISIN 06-17 11:25
PROVIDERS: ADMIT Family Medicine; ATTEND Internal Medicine
DX: J18.9 Pneumonia, unspecified organism (principal); J20.9 Acute bronchitis, unspecified; R09.02 Hypoxemia; G47.33 Obstructive sleep apnea (adult) (pediatric)
CPT/HCPCS: 36415; 71046; 71275; 80053; 82805; 83605; 83735; 83880; 84100; 84484; 85007; 85025; 85027; 87040; 87804; 93005; 94640; 94760; 94761

== ENCOUNTER → 2017-08-05 | Outpatient (CLI) | payer BC ==
[~2017-08-05] MED LIST changes: +ALBU1.25 IH; +ALPR0.5T PO; +AMOX1TAB11 PO; +BENZ-13 PO; +BENZ-36 PO; +CEFD300C3 PO; +CLAR-19 PO; +CODE118S2 PO; +FLUC200T5 PO; +FLUT1DIS28 INH; +HYDR473S34 PO; +HYDR5SYR PO; +PRD20T PO; +PRED10TA22 PO; +RT-ALBUTEROL SULF 2.5 MG/3 ML PRE-MIX VIAL INH ONE
--- NOTE | 2017-08-05 14:50 | Diagnostic Imaging Report ---
PROCEDURE: CT chest without contrast. TECHNIQUE: Multiple contiguous axial images were obtained through the chest without the use of intravenous contrast. INDICATION: Chronic dry cough. COMPARISON: Comparison is made with prior CT chest from 06/15/2017. FINDINGS: No axillary lymphadenopathy is seen. Hilar and mediastinal evaluation is limited without intravenous contrast. There are small lymph nodes within the mediastinum, stable when compared with prior examination. No pericardial or pleural fluid is detected. The previously noted tree-in-bud pulmonary infiltrates in the right upper and right lower lobes have cleared. No new infiltrate is seen. No mass is detected. Central airways are patent. The upper abdomen is unremarkable. IMPRESSION: Resolution of right upper and right lower lobe pneumonia when compared with the examination from 06/15/2017. Dictated by: Dictated on workstation # [id number]
== END ==
LOC: RAD 13:07
PROVIDERS: ATTEND Nurse Practitioner Family
DX: J18.9 Pneumonia, unspecified organism (principal); J40 Bronchitis, not specified as acute or chronic; E66.01 Morbid (severe) obesity due to excess calories
CPT/HCPCS: 71250; 94060; 94726; 94729

== ENCOUNTER → 2020-08-12 | Outpatient (CLI) | payer BC ==
[~2020-08-12] MED LIST changes: -BENZ-13 PO; +BENZ100C18 PO; -CLAR-19 PO; +CLAR-31 PO; -CODE118S2 PO; +CODE118S4 PO; -HYDR-3454 PO; +HYDR-3455 PO; +HYDR-4226 PO; -HYDR-757 PO; -HYDR473S34 PO; +HYDR473S61 PO; -RT-ALBUTEROL SULF 2.5 MG/3 ML PRE-MIX VIAL INH ONE
--- NOTE | 2020-08-12 12:25 | Diagnostic Imaging Report ---
INDICATION: Routine screening. Comparison is made with prior mammogram 12/08/2018 and 05/30/2017. 2-D and 3-D bilateral screening mammography was performed with CAD. Scattered fibroglandular densities are identified bilaterally. Intraparenchymal lymph nodes bilateral breast are stable. No new mass or malignant appearing microcalcifications are seen. Axillae are unremarkable. IMPRESSION: BI-RADS Category 2 No mammographic features suspicious for malignancy are identified. ACR BI-RADS Category 2: Benign findings. Result letter will be mailed to the patient. Note: At least 10% of breast cancer is not imaged by mammography. Dictated by: Dictated on workstation # [id number]
== END ==
LOC: RAD 07:30
PROVIDERS: ATTEND Internal Medicine
DX: Z12.31 Encounter for screening mammogram for malignant neoplasm of breast (principal)
CPT/HCPCS: 77063; 77067

== ENCOUNTER → 2021-08-26 | Outpatient (CLI) | payer BC ==
[~2021-08-26] MED LIST changes: -FLUC200T5 PO; +FLUC200T9 PO
--- NOTE | 2021-08-26 14:49 | Diagnostic Imaging Report ---
3-D mammogram, bilateral screening with CAD. This study was compared to the prior exams as far back as 05/30/2018. At this time there are no current complaints. The current study was also evaluated with a Computer Aided Detection (CAD) system. FINDINGS: There are scattered fibroglandular densities in both breasts which could obscure a lesion. Overall, there does not appear to have been any significant change when compared to the prior exam. No primary or secondary sign of malignancy is noted. IMPRESSION: There is no radiographic evidence for malignancy ACR category 1 ACR BI-RADS Category 1: Negative. Result letter will be mailed to the patient. Note: At least 10% of breast cancer is not imaged by mammography. Dictated by: Dictated on workstation # [id number]
== END ==
LOC: RAD 07:30
PROVIDERS: ATTEND Internal Medicine
DX: Z12.31 Encounter for screening mammogram for malignant neoplasm of breast (principal)
CPT/HCPCS: 77063; 77067

== ENCOUNTER 2022-06-09 05:51 | Outpatient (CLI) | payer BC ==
[~2022-06-09] VITALS: Ht 162.6 cm; Wt 108.8 kg
[2022-06-09] MEDS ORDERED: PANT40TA2 PO (08:50)
== END 2022-06-09 09:00 | disposition home or self-care (01) ==
LOC: PREOP 05:51
PROVIDERS: ATTEND Surgery
DX: Z01.818 Encounter for other preprocedural examination (principal)

== ENCOUNTER → 2022-06-11 | Day surgery (SDC) | payer BC ==
[~2022-06-11] VITALS: Ht 162.6 cm; Wt 108.8 kg
[~2022-06-11] MED LIST changes: +HURRICAINE EXT TUBE (BENZOCAINE) XX PRN; +LACTATED RINGERS 1,000 ML IV STA; +MIDAZOLAM 2 MG/2 ML (VERSED) VIAL ONE; +PANT40TA2 PO; +PROPOFOL INJECTION 50 ML IV ONE
[2022-06-11 12:10] VITALS: BP 124/68
--- NOTE | 2022-06-11 13:59 | Progress Note-Pre Operative ---
Pre-Operative Progress Note Date H&P Reviewed: Jun 11, 2022 Time H&P Reviewed: 13:58 History & Physical: H&P Reviewed, Patient Examed Changes from last HP GERD- Plan EGD/Colonoscopy Pre-Operative Diagnosis: gerd, screening colonoscopy MICHAEL GILLIS DO Jun 11, 2022 13:59
--- NOTE | 2022-06-11 14:38 | Progress Note-Post Operative ---
Post-Operative Progess Note Surgeon (s)/End Trimmer (s) Surgeon MICHAEL GILLIS DO End Trimmer: N/A Pre-Operative Diagnosis gerd, screening colonoscopy Post-Operative Diagnosis Antral Gastritis Cecal Polyp Procedure & Operative Findings Date of Procedure 06/11/22 Procedure Performed/Findings EGD w/ Biopsy Colonoscopy w/ hot biopsy polypectomy Anesthesia Type Per SAFETY MANAGER Estimated Blood Loss Estimated blood loss (mL): None Specimens/Packing Specimens Removed Antrum Cecal Polyp MICHAEL GILLIS DO Jun 11, 2022 14:38
[2022-06-11 14:40] VITALS: BP 109/63
--- NOTE | 2022-06-11 14:40 | Discharge Inst-Simple/Standard ---
Discharge Inst-Standard Patient Instructions/Follow Up Plan of Care/Instructions/FU: f/u 2 weeks w/ Dalila Activity as Tolerated: Yes Discharge Diet: No Restrictions MICHAEL GILLIS DO Jun 11, 2022 14:40
[2022-06-11 14:45] VITALS: BP 103/62
[2022-06-11 14:50] VITALS: BP 115/72
--- NOTE | 2022-06-11 14:53 | Anesthesia-General Post-Op ---
MAC Patient Condition Mental Status/LOC: Same as Preop Cardiovascular: Satisfactory Nausea/Vomiting: Absent Respiratory: Satisfactory Pain: Controlled Complications: Absent Post Op Complications Complications None Follow Up Care/Instructions Patient Instructions None needed. Anesthesiology Discharge Order Discharge Order Patient is doing well, no complaints, stable vital signs, no apparent adverse anesthesia problems. No complications reported per nursing. JOHNATHON SEQUEIRA CRNA Jun 11, 2022 14:53
[2022-06-11 15:05] VITALS: BP 115/72
--- NOTE | 2022-06-11 22:07 | OPERATIVE REPORT ---
DATE OF SERVICE: 06/11/2022 PREOPERATIVE DIAGNOSES: Gastroesophageal reflux disease, screening colonoscopy. POSTOPERATIVE DIAGNOSES: Antral gastritis and cecal polyp. PROCEDURE: EGD with biopsy of the antrum, colonoscopy with hot biopsy polypectomy x1. SURGEON: Michael Conner DO ANESTHESIA: Per SAFETY ASSOCIATE. ESTIMATED BLOOD LOSS: None. COMPLICATIONS: None. INDICATIONS: The patient is a 46-year-old female, needing EGD and colonoscopy. She understands risks and benefits of procedure and wished to proceed. Consent was signed and in chart. DESCRIPTION OF PROCEDURE: The patient was taken to the endoscopy suite, placed in the left lateral recumbent position. Timeout was performed. Scope was inserted in the mouth, down the esophagus, stomach, into the duodenum without difficulty. No polyps, masses or ulcerations. Scope was then slowly retracted back into the stomach where it was further insufflated. Slight erythematous changes present. Biopsy of the antrum was obtained. Scope was retroflexed noting no other pathology. Scope was returned to its normal position, slowly withdrawn to the distal esophagus. No polyps, masses or ulcerations. Scope was slowly retracted back until completely removed. Digital rectal exam was performed. No palpable polyps, masses or ulcerations. Scope was inserted in the rectum, advanced all the way to the cecum with minimal difficulty. Prep was adequate. Cecal polyp present in the cecum. Hot biopsy polypectomy was performed. Scope was then continued slowly retracted back. No polyps, masses or ulcerations remainder of the ascending, transverse, descending and sigmoid colon. Once in the rectum, scope was retroflexed noting no other pathology. Scope was returned to its normal position, slowly withdrawn until completely removed. The patient tolerated the procedure well without complications, taken to recovery room in stable condition. RECOMMENDATIONS: The patient will need repeat colonoscopy in 5 years due to colon polyp. Would continue on Protonix at this time. Await biopsies. She will follow up in 2 weeks. Any issues before that timeframe be seen at that time. Job ID: [id number] DocumentID: [id number] Dictated Date: 06/11/2022 14:38:47 Wood Molder Date: 06/11/2022 22:05:00 Dictated By: MICHAEL CONNER DO
== END | disposition home or self-care (01) ==
LOC: ENDO 11:46
PROVIDERS: ATTEND Surgery
DX: Z12.11 Encounter for screening for malignant neoplasm of colon (principal); D12.0 Benign neoplasm of cecum; K29.70 Gastritis, unspecified, without bleeding; K31.89 Other diseases of stomach and duodenum; E66.01 Morbid (severe) obesity due to excess calories; G47.33 Obstructive sleep apnea (adult) (pediatric); Z68.41 Body mass index [BMI] 40.0-44.9, adult; Z79.899 Other long term (current) drug therapy
CPT/HCPCS: 84703